=== PATIENT | female | born 1970 | race Caucasian/White ===

== ENCOUNTER 2018-11-23 12:57 | Emergency (ER) | payer BC ==
[~2018-11-23] VITALS: Ht 157.5 cm; Wt 61.2 kg
[2018-11-23] MEDS ORDERED: KETOROLAC TROMETHAMINE 30 MG/ML VIAL IV STA (13:22)
[2018-11-23] MEDS ORDERED: ONDANSETRON HCL INJ 2MG/ML 2ML 2 MG/ML VIAL IV STA (13:22)
[2018-11-23] MEDS ORDERED: SODIUM CHLORIDE 0.9% 1000ML 1,000 ML IV SCH (13:30)
[2018-11-23] MEDS ORDERED: DIPHENHYDRAMINE HCL INJ 50 MG/ML VIAL IV ONE (13:30)
[2018-11-23] MEDS ORDERED: MORPHINE SULFATE INJ 4 MG/ML INJ 1ML IV PRN (14:45)
[2018-11-23 15:19] VITALS: BP 102/58
== END 2018-11-23 15:26 | disposition home or self-care (01) ==
LOC: FSED 12:57
DX: G43.019 Migraine without aura, intractable, without status migrainosus (principal)
CPT/HCPCS: 83518; 87400; 99282; J1200; J1885; J2405; J7030